=== PATIENT | male | born 1960 | race Caucasian/White ===

== ENCOUNTER 2017-12-03 05:36 | Day surgery (SDC) | payer OTHER ==
[~2017-12-03] VITALS: Ht 182.9 cm; Wt 113.4 kg
--- NOTE | ~2017-12-03 | H ---
[facility] [place] [address] HISTORY AND PHYSICAL Name: ALESSANDRA NEWSOME Bernard Room #: 150-8 [facility].#: [id number] Admission: 12/03/17 Attend Phys: Josue Ramey MD Discharge: Date of : 64 Report #: [id number] THIS REPORT FOR: //name// CC: FAM unknown Josue Ramey His procedure is scheduled for 12/03/2017. The patient underwent shoulder surgery 2 weeks ago and ever since waking up from the surgery, he has been unable to speak. He was told by the anesthesiologist that he did not have intubation, but rather a laryngeal mask anesthesia. He is not having difficulty with his swallowing or breathing. PAST MEDICAL HISTORY: Otherwise, significant for acid reflux. ALLERGIES: He has no known drug allergies. PHYSICAL EXAMINATION: He has a deviated nasal septum to the right side. His oropharynx and oral cavity were clear. A fiberoptic nasal laryngoscopy shows that the left arytenoid is folded over into the glottic larynx and the left vocal cord was not moving. IMPRESSION: Dislocation of the left arytenoid probably from intubation. PLAN: Direct laryngoscopy with reduction of the arytenoid dislocation. <ELECTRONICALLY SIGNED> By: Josue Ramey MD 12/03/17 [id number] Josue Ramye MD /nt
--- NOTE | ~2017-12-03 | O ---
[facility] [place] [address] OPERATIVE REPORT Name: SUNDAYMARCUSALESSANDRA Room #: 150-8 [facility].#: [id number] Admission: 12/03/17 Attend Phys: Josue Ramey MD Discharge: Date of : 64 Report #: [id number] THIS REPORT FOR: //name// CC: FAM unknown Josue Ramey DATE OF SERVICE: 12/03/2017 PREOPERATIVE DIAGNOSES: Hoarseness with arytenoid dislocation. POSTOPERATIVE DIAGNOSES: Hoarseness with arytenoid dislocation. OPERATIVE PROCEDURE: Direct laryngoscopy with reduction of dislocated arytenoids. It was a general endotracheal. DESCRIPTION OF PROCEDURE: The patient was taken to the operating room and placed in a supine position. General anesthesia was induced by endotracheal intubation. Once adequate general anesthesia was obtained, a laryngoscope was passed through the patient's oral cavity and hypopharynx into the larynx. The glottic larynx was visualized and the arytenoid appeared to be normal. I palpated the arytenoid and rocked it back posteriorly and laterally, and I felt that it appeared to be symmetric with the right side. The laryngoscope was then removed. The patient tolerated the procedure well, and there was no blood loss. The patient was then awoken and taken to the recovery room in stable condition for postoperative monitoring. By: [id number] Josue Ramey MD /nt
[~2017-12-03 05:36] MED LIST: CALCIUM 600 +1 EAC1 PO; CENTRUM SILVER1 EAC2 PO; OMEPRAZOLE 20 M20 M1 PO; URSO FORTE500 MG PO; VITAMIN A8000 UNI1 PO; VITAMIN B-1250 MC3 PO; VITAMIN K100 MCG PO
[2017-12-03 09:21] VITALS: BP 1112/68
== END 2017-12-03 08:55 | disposition home or self-care (01) ==
LOC: OR 05:36 → TBA 05:36 → OR 06:46
DX: J38.7 Other diseases of larynx (principal); R49.0 Dysphonia; Z68.33 Body mass index [BMI] 33.0-33.9, adult; G47.30 Sleep apnea, unspecified; K21.9 Gastro-esophageal reflux disease without esophagitis; Z98.890 Other specified postprocedural states; Z90.49 Acquired absence of other specified parts of digestive tract
CPT/HCPCS: 50010; 50101